=== PATIENT | female | born 1980 | race Caucasian/White ===

== ENCOUNTER 2017-10-20 22:50 | Emergency (ER) | payer OTHER ==
[~2017-10-20] VITALS: Ht 172.7 cm; Wt 52.6 kg
[2017-10-20 23:45] LABS: HEMATOCRIT 36.4 % (36.0-46.0); MCH 33.1 PG (29.0-34.0); MCHC 34.1 G/DL (30.0-36.0); MCV 97.1 FL (83-99); MEAN PLAT.VOLUME 10.2 uM^3 (9.5-12.4); PLATELET COUNT 189 K/uL (156-360); RBC DIS.WIDTH-CV 13.7 % (11.8-14.6); RBC DIS.WIDTH-SD 49.2 % (39-53); RED BLOOD COUNT 3.75 M/uL (3.80-5.20); WHITE BLOOD COUNT 5.3 K/uL (4.1-10.2)
[2017-10-20 23:59] LABS: CHLORIDE 91 mEq/L (99-109); POTASSIUM 3.3 mEq/L (3.7-5.4); SODIUM 135 mEq/L (136-147)
[2017-10-21] LABS: GLUCOSE 184 mg/dL (70-99)
[2017-10-21 00:02] LABS: ANION GAP 18 MEQ/L (2-14)
[2017-10-21 00:04] LABS: GFR ESTIMATE (CALCULATED) > 59 mL/min/
[2017-10-21 00:05] LABS: UREA NITROGEN (BUN) 6 mg/dL (9-23)
[2017-10-21 00:13] LABS: QUANTITATIVE HCG < 4.0 MIU/ML
[2017-10-21 01:16] LABS: ADD MIUA? YES; BILIRUBIN NEGATIVE; BLOOD SMALL; COLOR YELLOW ((YELLOW)); GLUCOSE (STRIP) NEGATIVE; KETONES 80; LEUKOCYTES LARGE; NITRITE NEGATIVE; PROTEIN (STRIP) 30; SPECIFIC GRAVITY 1.015 (1.000-1.030)
[2017-10-21 01:36] LABS: BACTERIA 2+ /HPF; EPITHELIAL CELLS 1+ /HPF; HYALINE CASTS 0-5 /LPF; MUCUS 3+ /LPF; RED BLOOD CELLS 0-5 /HPF (0-5); UCUL ADDED? YES; WHITE BLOOD CELLS 30-40 /HPF (0-5)
[2017-10-21] MEDS ORDERED: MACROBID100 MG PO (01:50)
[2017-10-21 02:17] VITALS: BP 132/94
== END 2017-10-21 02:19 | disposition home or self-care (01) ==
LOC: EME 22:50
PROVIDERS: Physician Assistant
DX: N39.0 Urinary tract infection, site not specified (principal); N93.9 Abnormal uterine and vaginal bleeding, unspecified; A69.20 Lyme disease, unspecified; Z88.0 Allergy status to penicillin
CPT/HCPCS: 76856; 80048; 81003; 84702; 85027; 87077; 87086; 87186; 99281; 99284